=== PATIENT | female | born 1950 | race Caucasian/White ===

== ENCOUNTER 2023-11-22 19:34 | Emergency (ER) | payer OTHER ==
[2023-11-22 20:17] LABS: Absolute Eosinophils 0.1 K/uL (0-0.5); Absolute Lymphocytes (CBC) 2.1 K/uL (0.7-4.9); Absolute Monocytes 0.5 K/uL (0.1-1.3); Absolute Neutrophil 2.8 K/uL (1.8-8.0); Basophils % 0.9 % (0-1.3); Eosinophils % 1.4 % (0-4.4); Hematocrit 33.3 % (36.0-45.0); Hemoglobin 11.1 g/dL (12.0-15.0); Lymphocytes % 38.5 % (15.3-44.8); MCH 31.6 pg (27.0-35.0); MCHC 33.3 g/dL (32.0-36.0); MCV 94.9 fL (80-100); MPV 8.4 fL (7.6-11.3); Monocytes % 9.2 % (3.3-12.3); Nucleated Red Blood Cells % 0.3 % (0-0); Platelets 249 thou/uL (152-406); Red Cell Distribution Width 13.5 % (12.1-15.2)
[2023-11-22 20:39] LABS: AST/SGOT 18 U/L (15-37); Albumin 3.2 g/dL (3.4-5.0); Albumin/Globulin Ratio 0.8 (1.1-1.8); Alkaline Phosphatase 54 U/L (45-117); Anion Gap 4.8 mEq/L (5.0-15.0); BUN Blood Urea Nitrogen 14 mg/dL (7-18); Bicarbonate 39 mEq/L (21-32); Bilirubin Total 0.2 mg/dL (0.2-1.0); Globulin 3.8 g/dL (2.3-3.5); Glomerular Filtration Rate 55 ml/min (=/>90); Glucose Level 101 mg/dL (74-106); Magnesium 1.5 mg/dL (1.6-2.4); Potassium 3.8 mEq/L (3.5-5.1); Sodium Level 135 mEq/L (136-145)
[2023-11-22 20:45] LABS: ALT/SGPT < 14 U/L (13-56); Bilirubin Direct < 0.2 mg/dL (0-0.2)
--- NOTE | 2023-11-22 21:29 | RAD REPORT ---
EXAM DESCRIPTION: RADChest Single View11/22/2023 8:01 pm CLINICAL HISTORY: CHEST PAIN COMPARISON: Chest For Pe Angio dated 11/22/2023 TECHNIQUE: Portable AP view of the chest. FINDINGS: Hazy right basilar airspace opacification, may reflect superimposition of soft tissues and breast implant. Underlying hyperlucency and hyperinflation suggesting COPD. No pneumothorax or effu jenni. The cardiomediastinal contours are unremarkable. IMPRESSION: No acute cardiopulmonary process. Findings as above.
--- NOTE | 2023-11-22 22:05 | RAD REPORT ---
EXAM DESCRIPTION: CT - Chest For Pe Angio - 11/22/2023 9:11 pm CLINICAL HISTORY: Dyspnea;Chest pain COMPARISON: Chest Single View dated 11/22/2023 TECHNIQUE: Thin axial CT images of the chest were obtained following administration of iodinated co ntrast intravenously. Multiplanar reconstructions, and maximum intensity projection reconstructions w ere generated and reviewed. Exam utilizes a protocol for optimal evaluation of pulmonary arterial nicci e. All CT scans are performed using dose optimization technique as appropriate and may include automated exposure control or mA/KV adjustment according to patient size. FINDINGS: Pulmonary arteries are normal. No emboli or other suspicious finding. No acute or signific ant aorta findings, although the ascending aorta is relatively mildly prominent measuring 3.7 cm in c aliber, without a discrete aneurysm. . Peripheral left lower lobe reticular and tree-in-bud opacities. No mass or other infiltrate in the vinnie ng parenchyma. Advanced emphysematous changes. No pleural thickening or pleural effusion. No pneumoth orax. No abnormal mediastinal or hilar masses or lymphadenopathy seen. No chest wall mass or abnormal axill iary lymphadenopathy. Status post cholecystectomy. Anterior wedge compression deformity at T8 with moderate vertebral body height loss, favored to be ch ronic. IMPRESSION: No evidence of acute central pulmonary emboli. Peripheral left lower lobe reticular and tree-in-bud opacities, may reflect a mild infectious/inflamm atory process.
[2023-11-22] MEDS ORDERED: CEFTRIAXONE 1000 MG/VIAL ONE (22:37)
[2023-11-22] MEDS ORDERED: NA CHLORIDE 0.9% 50 ML ONE (22:37)
--- NOTE | 2023-11-22 23:42 | ER ---
Nurse's Notes [facility] Name: Katlin Yadav Age: 73 yrs Sex: Female : 1950 Arrival Date: 11/22/2023 Time: 19:34 Bed 19 Private MD: Diagnosis: Muscle weakness (generalized);Shortness of breath;Left lower lung pneumonia;COPD/ Chronic obstructive pulmonary disease with acute lower respiratory infection Presentation: 11/21 19:28 Chief complaint: EMS states: Traveling from 5 hours away, intermittent chest pain since tm6 along with bilateral arm pain. Upon EMS arrival, pt denied chest pain but was short of breath, hx of COPD, wears 3 LPM O2 via NC, oxygen saturation was found to be in the 70's. 19:28 Method Of Arrival: EMS: [facility] tm6 19:28 Coronavirus screen: Vaccine status: Patient reports receiving the 2nd dose of the covid tm6 vaccine. Ebola Screen: Patient denies travel to an Ebola-affected area in the 21 days before illness onset. Initial Sepsis Screen: Does the patient meet any 2 criteria? HR > 90 bpm. No. Patient's initial sepsis screen is negative. Does the patient have a suspected source of infection? No. Patient's initial sepsis screen is negative. Risk Assessment: Do you want to hurt yourself or someone else? Patient reports no desire to harm self or others. Onset of symptoms was November 22, 2023. 19:28 Acuity: SUN 3 tm6 19:28 Care prior to arrival: IV initiated. 22 GA, in the right hand. nj1 Historical: - Allergies: 19:42 No Known Allergies; tm6 - PMHx: 19:42 Chronic obstructive lung disease; Myocardial infarction; Hypertensive disorder; tm6 Migraine; Coronary atherosclerosis; Emphysema; - Immunization history:: Client reports receiving the 2nd dose of the Covid vaccine. - Infectious Disease History:: Denies. - Social history:: Smoking status: Patient/guardian denies using tobacco, the patient reports quitting approximately 2 years ago. Screenin:43 [facility] ED Fall Risk Assessment (Adult) History of falling in the last 3 months, tm6 including since admission No falls in past 3 months (0 pts) Confusion or Disorientation No (0 pts) Intoxicated or Sedated No (0 pts) Impaired Gait No (0 pts) Mobility Assist Device Used No (0 pt) Altered Elimination No (0 pt) Score/Fall Risk Level 0 - 2 = Low Risk Oriented to surroundings, Maintained a safe environment, Educated pt \T\ family on fall prevention, incl call for assistance when getting out of bed. Abuse screen: Denies threats or abuse. Denies injuries from another. Nutritional screening: No deficits noted. Tuberculosis screening: No symptoms or risk factors identified. Assessment: 19:43 General: Appears uncomfortable, Behavior is calm, cooperative. Pain: Complains of pain tm6 in chest, right arm and left arm Pain does not radiate. Pain began gradually. Neuro: Level of Consciousness is awake, alert, obeys commands, Oriented to person, place, time, situation. Cardiovascular: Reports chest pain, shortness of breath, Patient's skin is warm and dry. Respiratory: Reports shortness of breath at rest on exertion Airway is patent Respiratory effort is labored, Respiratory pattern is regular, symmetrical. GI: Abdomen is flat, non-distended. : No signs and/or symptoms were reported regarding the genitourinary system. EENT: No signs and/or symptoms were reported regarding the EENT system. Derm: No signs and/or symptoms reported regarding the dermatologic system. Musculoskeletal: No signs and/or symptoms reported regarding the musculoskeletal system. 20:38 Reassessment: Patient appears in no apparent distress at this time. Patient is alert, tm6 oriented x 3, equal unlabored respirations, skin warm/dry/pink. 23:18 Reassessment: Patient appears in no apparent distress at this time. Patient and/or tm6 family updated on plan of care and expected duration. Pain level reassessed. Patient is alert, oriented x 3, equal unlabored respirations, skin warm/dry/pink. 23:39 Reassessment: Patient appears in no apparent distress at this time. Patient and/or tm6 family updated on plan of care and expected duration. Pain level reassessed. Patient is alert, oriented x 3, equal unlabored respirations, skin warm/dry/pink. Patient states feeling better. Vital Signs: 19:28 BP 131 / 97; Pulse 108; Resp 20; Temp 98.3(O); Pulse Ox 99% on 4 lpm NC; Weight 51.71 tm6 kg; Height 5 ft. 8 in. ; 20:37 BP 118 / 89; Pulse 88; Resp 20; Pulse Ox 100% on 4 lpm NC; tm6 23:17 BP 148 / 88; Pulse 92; Resp 17; Pulse Ox 98% on 3 lpm NC; Pain 0/10; tm6 23:39 BP 120 / 84; Pulse 90; Resp 15; Temp 97.3(TE); Pulse Ox 100% on 3 lpm NC; Pain 0/10; tm6 19:28 Body Mass Index 17.33 (51.71 kg, 172.72 cm) tm6 23:17 Pain Scale: Adult tm6 23:39 Pain Scale: Adult tm6 [place] Coma Score: 21:29 Eye Response: spontaneous(4). Motor Response: obeys commands(6). Verbal Response: sp4 oriented(5). Total: 15. ED Course: 19:37 Patient arrived in ED. tm6 19:38 Oneil Yusuf DO is Attending Physician. ms3 19:42 Triage completed. tm6 19:43 Sergey Gaona, RN is Primary Nurse. tm6 19:43 Patient has correct armband on for positive identification. Bed in low position. Call tm6 light in reach. Side rails up X2. Provided Education on: use of call meade. Client placed on continuous cardiac and pulse oximetry monitoring. NIBP monitoring applied. property assessment monitor on. Pulse ox on. NIBP on. Door closed. Noise minimized. Warm blanket given. 19:43 Missed attempt(s): 20 gauge in right forearm. Maintain EMS IV. Dressing intact. Good tm6 blood return noted. Site clean \T\ dry. Gauge \T\ site: 22g R hand. Oxygen administration via nasal cannula \T\ 4L/min. 19:44 Arm band placed on. tm6 19:59 Attending Physician role handed off by Oneil Yusuf DO ms3 19:59 Georgi Amaro MD is Attending Physician. ms3 20:03 XRAY Chest (1 view) In Process Unspecified. EDMS 20:05 Inserted saline lock: 20 gauge in left upper arm, using aseptic technique. Blood nj1 collected. Ultrasound guided. Catheter tip well visualized within vasculature during placement. 20:24 EKG done, by ED staff, reviewed by Georgi Amaro MD. tm6 21:12 CT Chest For PE Angio In Process Unspecified. EDMS 23:17 Assisted with bedpan. tm6 23:37 EKG done, by ED staff, reviewed by Georgi Amaro MD. tm6 23:40 No provider procedures requiring assistance completed. IV discontinued, intact, tm6 bleeding controlled, No redness/swelling at site. Pressure dressing applied. Administered Medications: 23:08 Drug: Rocephin - Rocephin (cefTRIAXone) IVPB 1 grams IVPB once over 30 mins; (mix in 50 tm6 mL NS) Route: IVPB; Infused Over: 30 mins; Site: left upper arm; Medication: 19:43 VIS not applicable for this client. tm6 Outcome: 23:40 Discharged to home via wheelchair, with family, tm6 23:40 Condition: stable 23:41 Discharge ordered by . sp4 23:44 Discharge instructions given to patient, family, Instructed on discharge instructions, tm6 follow up and referral plans. medication usage, Demonstrated understanding of instructions, follow-up care, medications, Prescriptions given X 2, 23:52 Patient left the ED. tm6 Signatures: Dispatcher [employer] EDMS Oneil Yusuf, DO ms3 Georgi Amaro MD MD sp4 Mamta Martin, RN RN nj1 Sergey Gaona RN RN tm6
--- NOTE | 2023-11-22 23:42 | EDPHYS ---
Physician Documentation [facility] Name: Katlin Yadav Age: 73 yrs Sex: Female : 1950 Arrival Date: 11/22/2023 Time: 19:34 Bed 19 Private MD: ED Physician Georgi Amaro HPI: 11/21 19:55 This 73 yrs old Female presents to ER via EMS with complaints of Chest Pain. ms3 19:55 73-year-old female with past medical history of COPD, myocardial infarction, ms3 hypertension, migraine presents to the emergency department for chest pain throughout her chest. Patient notes she traveled 5 hours to [place] today. On arrival to the emergency department patient denies chest pain or symptoms. EMS notes patient was sinus tachycardic on the monitor, systolic blood pressure was 96, oxygen saturation on 4 L demand was 84%. After placing patient on EMS continuous nasal cannula oxygen saturations improved to 96%. 21:23 . sp4 21:24 Very pleasant 73-year-old female with history of COPD on oxygen dependent, 3 L of O2 sp4 [id number] presents with acute onset of feeling unwell, bilateral arm pain, pain with radiation to the [place], dyspnea pallor and nausea. Patient arrived with EMS. Patient was hypoxemic on arrival at 84%. Patient reports that he she is traveling from [facility] she is here visiting her relatives. Patient at home takes BC powders, atorvastatin, amitriptyline, metoprolol, omeprazole, midodrine and duloxetine. Patient on chronic hydrocodone for pain associated with prior spinal fractures. 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 This mass is currently being worked up. . Historical: - Allergies: 19:42 No Known Allergies; tm6 - PMHx: 19:42 Chronic obstructive lung disease; Myocardial infarction; Hypertensive disorder; tm6 Migraine; Coronary atherosclerosis; Emphysema; - Immunization history:: Client reports receiving the 2nd dose of the Covid vaccine. - Infectious Disease History:: Denies. - Social history:: Smoking status: Patient/guardian denies using tobacco, the patient reports quitting approximately 2 years ago. ROS: 19:55 Constitutional: Negative for fever, and chills. ms3 19:55 MS/Extremity: Negative for injury and deformity, Skin: Negative for injury, rash, and discoloration, 19:55 Cardiovascular: Positive for chest pain, 19:55 Respiratory: Positive for shortness of breath, Exam: 19:55 Constitutional: This is a well developed, well nourished patient who is awake, alert, ms3 and in no acute distress. Head/Face: Normocephalic, atraumatic. Chest/axilla: Normal chest wall appearance and motion. Nontender with no deformity. Cardiovascular: Regular rate and rhythm with a normal S1 and S2. No gallops, murmurs, or rubs. Normal PMI, no JVD. No pulse deficits. Respiratory: Lungs have equal breath sounds bilaterally, clear to auscultation and percussion. No rales, rhonchi or wheezes noted. No increased work of breathing, no retractions or nasal flaring. Abdomen/GI: Soft, non-tender, with normal bowel sounds. No distension or tympany. No guarding or rebound. No evidence of tenderness throughout. Skin: Warm, dry with normal turgor. Normal color with no rashes, no lesions, and no evidence of cellulitis. 20:48 ECG was reviewed by the Attending Physician. Normal sinus rhythm at the rate of 95 sp4 EKG time 2020. Right atrial enlargement 21:29 Eyes: Pupils equal round and reactive to light, extra-ocular motions intact. Lids and sp4 lashes normal. Conjunctiva and sclera are not injected. Cornea within normal limits. Periorbital areas with no swelling, redness, or edema. ENT: Nares patent. No nasal discharge, no septal abnormalities noted. Tympanic membranes are normal and external auditory canals are clear. Oropharynx with no redness, swelling, or masses, exudates, or evidence of obstruction, uvula midline. Mucous membranes moist. Neck: Trachea midline, no thyromegaly or masses palpated, and no cervical lymphadenopathy. Supple, full range of motion without nuchal rigidity, or vertebral point tenderness. Back: No spinal tenderness. No costovertebral tenderness. MS/ Extremity: Pulses equal, no cyanosis. Neurovascular intact. Full, normal range of motion. Normal intact peripheral pulses without peripheral edema. Neuro: Awake and alert, GCS 15, oriented to person, place, time, and situation. Cranial nerves II-XII grossly intact. Motor strength 5/5 in all extremities. Sensory grossly intact. Psych: Awake, alert, with orientation to person, place and time. Behavior, mood, and affect are within normal limits Vital Signs: 19:28 BP 131 / 97; Pulse 108; Resp 20; Temp 98.3(O); Pulse Ox 99% on 4 lpm NC; Weight 51.71 tm6 kg; Height 5 ft. 8 in. ; 20:37 BP 118 / 89; Pulse 88; Resp 20; Pulse Ox 100% on 4 lpm NC; tm6 23:17 BP 148 / 88; Pulse 92; Resp 17; Pulse Ox 98% on 3 lpm NC; Pain 0/10; tm6 23:39 BP 120 / 84; Pulse 90; Resp 15; Temp 97.3(TE); Pulse Ox 100% on 3 lpm NC; Pain 0/10; tm6 19:28 Body Mass Index 17.33 (51.71 kg, 172.72 cm) tm6 23:17 Pain Scale: Adult tm6 23:39 Pain Scale: Adult tm6 [place] Coma Score: 21:29 Eye Response: spontaneous(4). Motor Response: obeys commands(6). Verbal Response: sp4 oriented(5). Total: 15. MDM: 19:44 Patient medically screened. ms3 19:55 Differential diagnosis: abnormal EKG, acute myocardial infarction, pulmonary embolus. ms3 19:59 Transition of care: After a detail discussion of the patient's case, care is ms3 transferred to Georgi Amaro MD. 21:27 HEART Score: History: Moderately Suspicious (1), ECG: Normal (0), Age: > or = 65 years sp4 (2), Risk Factors: > or = 3 Risk factors for atherosclerotic disease (2), Troponin: < or = 1 x Normal Limit (0), Total Score = 5. Data reviewed: vital signs, nurses notes, EMS record, lab test result(s), EKG, radiologic studies, CT scan. 11/21 19:39 Order name: Basic Metabolic Panel; Complete Time: 20:48 ms3 11/21 19:39 Order name: CBC with Diff; Complete Time: 20:48 ms3 11/21 19:39 Order name: LFT's; Complete Time: 20:48 ms3 11/21 19:39 Order name: Magnesium; Complete Time: 20:48 ms3 11/21 19:39 Order name: Troponin HS; Complete Time: 20:48 ms3 11/21 22:14 Order name: Troponin High Sensitivity: Collect at 23 :30; Complete Time: 23:27 sp4 11/21 19:39 Order name: XRAY Chest (1 view); Complete Time: 22:13 ms3 11/21 19:39 Order name: CT Chest For PE Angio; Complete Time: 22:13 ms3 11/21 23:27 Order name: EKG; Complete Time: 23:28 sp4 11/21 19:39 Order name: Cardiac monitoring; Complete Time: 19:44 ms3 11/21 19:39 Order name: EKG - Nurse/Tech; Complete Time: 20:24 ms3 11/21 19:39 Order name: IV Saline Lock; Complete Time: 20:12 ms3 11/21 19:39 Order name: Labs collected and sent; Complete Time: 20:12 ms3 11/21 19:39 Order name: O2 Per Protocol; Complete Time: 19:44 ms3 11/21 19:39 Order name: O2 Sat Monitoring; Complete Time: 19:44 ms3 11/21 23:27 Order name: EKG - Nurse/Tech; Complete Time: 23:36 sp4 EC:48 Rate is 95 beats/min. Rhythm is regular, Normal Sinus Rhythm. QRS Chambers is Normal. ME sp4 interval is normal. QRS interval is normal. QT interval is normal. No Q waves. T waves are Normal. No ST changes noted. Clinical impression: Normal ECG. Reviewed by me. Administered Medications: 23:08 Drug: Rocephin - Rocephin (cefTRIAXone) IVPB 1 grams IVPB once over 30 mins; (mix in 50 tm6 mL NS) Route: IVPB; Infused Over: 30 mins; Site: left upper arm; Disposition Summary: 11/22/23 23:41 Discharge Ordered Notes: Location: Home sp4 Problem: new sp4 Symptoms: have improved sp4 Condition: Stable sp4 Diagnosis - Muscle weakness (generalized) sp4 - Shortness of breath sp4 - Left lower lung pneumonia sp4 - COPD/ Chronic obstructive pulmonary disease with acute lower respiratory infection sp4 Followup: sp4 - With: Private Physician - When: 7 - 10 days - Reason: Recheck today's complaints Discharge Instructions: - Discharge Summary Sheet sp4 - Living With COPD sp4 Forms: - Patient Portal Instructions sp4 Prescriptions: - Cephalexin 500 mg Oral Capsule - take 1 capsule ORAL route every 12 hours for 10 days; 20 capsule; Refills: 0, sp4 Product Selection Permitted - Prednisone 20 mg Oral Tablet - take 2 tablets ORAL route once daily for 5 days; 10 tablet; Refills: 0, Product sp4 Selection Permitted Signatures: Dispatcher [employer] EDMS Oneil Yusuf DO DO ms3 Georgi Amaro MD MD sp4 Sergey Gaona RN RN tm6 Corrections: (The following items were deleted from the chart) 19:40 19:40 Chest Single View+RAD.RAD.BRZ ordered. EDMS EDMS 19:40 19:40 Chest For PE Angio+CT.RAD.BRZ ordered. EDMS EDMS
[2023-11-23 00:40] VITALS: BP 120/84; TEMP 97.3; O2SAT 100
== END 2023-11-22 23:52 | disposition home or self-care (01) ==
LOC: ER 19:34
DX: J18.9 Pneumonia, unspecified organism (principal); J44.0 Chronic obstructive pulmonary disease with (acute) lower respiratory infection; Z99.81 Dependence on supplemental oxygen; M62.81 Muscle weakness (generalized)
CPT/HCPCS: 85025; 80048; 36415; 83735; 80076; 84484 ×2; 71275; 71045; Q9967; J0696